=== PATIENT | female | born 2000 | race Caucasian/White ===

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

== ENCOUNTER 2023-06-16 15:43 | Outpatient (REF) | payer BC, MEDICAID, SELFPAY ==
--- NOTE | 2023-06-16 11:30 | PAPFT_PTH ---
PATIENT: Rebecca Garcia [facility] U[facility][id number] AGE/SX: 22/F ROOM: RE06/16/[address]: Hamida Narayan : 2000 BED: DIS: 06/16/2023 SPEC #: [id number] RECD: 06/16/23 17:42 STATUS: NIRANJAN HERNANDEZ #: [id number] VIDHYA: 06/16/23 11:[address]: Hamida Narayan DEPT: [facility] Cytology RECD BY: Sendy Elliott Tissues: 1 - CX/ENDOCX FOR PAP SMEARS Procedures: PAP THIN PREP/[facility] Screening Comments: [id number] (CHLAMYDIA/GC)
[2023-06-16 23:13] LABS: Hepatitis C Ab w Rflx HCV PCR Negative (Negative)
[2023-06-16 23:18] LABS: HIV-1/2 Ag & Ab Screen Negative (Negative)
[2023-06-20 11:45] LABS: Syphilis Serology (RPR) Negative (Negative)
[2023-06-20 16:09] LABS: Chlamydia Result Negative (Negative); GC Result Negative (Negative)
== END 2023-06-16 15:44 | disposition home or self-care (01) ==
LOC: NCHCN 15:43
PROVIDERS: PCP Nurse Practitioner Family; Visit Provider Nurse Practitioner Family
DX: Z00.00 Encounter for general adult medical examination without abnormal findings (principal)
CPT/HCPCS: 86803; 87389; 87491; 87591; 88142; 86592

== ENCOUNTER 2023-08-28 14:14 | Outpatient (REF) | payer BC, SELFPAY | END 2023-08-28 14:15 | disposition home or self-care (01) | LOC: NCHCN 14:14 | PROVIDERS: PCP Nurse Practitioner Family; Visit Provider Family Medicine | DX: R30.0 Dysuria (principal) | CPT/HCPCS: 87086 ==

== ENCOUNTER 2023-11-02 15:57 | Outpatient (REF) | payer BC, SELFPAY | END 2023-11-02 15:58 | disposition home or self-care (01) | LOC: LBN 15:57 | PROVIDERS: PCP Nurse Practitioner Family; Visit Provider Physician Assistant Medical | DX: J02.9 Acute pharyngitis, unspecified (principal) | CPT/HCPCS: 87070 ==

== ENCOUNTER 2023-12-07 13:02 | Outpatient (REF) | payer BC, SELFPAY | END 2023-12-07 13:03 | disposition home or self-care (01) | LOC: NCHCN 13:02 | PROVIDERS: PCP Nurse Practitioner Family; Visit Provider Nurse Practitioner Family | DX: N76.0 Acute vaginitis (principal) | CPT/HCPCS: 87480; 87510; 87660 ==

== ENCOUNTER 2025-01-20 22:00 | Outpatient (REF) | payer OTHER, SELFPAY ==
[2025-01-20 22:22] LABS: WBC >50 HPF (0-5)
== END 2025-01-20 22:01 | disposition home or self-care (01) ==
LOC: LBN 22:00
PROVIDERS: PCP Nurse Practitioner Family; Visit Provider Physician Assistant Medical
DX: R10.32 Left lower quadrant pain (principal); B96.29 Other Escherichia coli [E. coli] as the cause of diseases classified elsewhere
CPT/HCPCS: 87077; 81015; 87086; 87186